=== PATIENT | female | born 2000 | race Caucasian/White ===

== ENCOUNTER 2021-05-12 12:09 | Emergency (ER) | payer OTHER, SELFPAY ==
[2021-05-12 12:26] VITALS: BP 137/88; PULSE 95; RESP 18; TEMP 36.6; O2SAT 100; BMI 26.5
--- NOTE | 2021-05-12 13:35 | ED_ITS ---
HPI - General Adult General Chief complaint: General Medical Stated complaint: ? Time Seen by Provider: 05/12/21 13:21 Source: patient Mode of arrival: ambulatory Limitations: no limitations History of Present Illness HPI narrative: 20-year-old female presents for wanting help with obtaining an . Patient's last menstrual period was April 08. Patient had negative test at home, but 1 week ago was at [facility], for vomiting and dizziness, and had reports she had a positive blood test there. She is 3, para 1, one other . She has a 4-year-old son, and cannot take care of another child at this time. Patient seeking help with termination No abdominal pain, no vomiting, no vaginal bleeding, no pelvic cramping, no vaginal discharge, no STI concerned Related Data Allergies Allergy/AdvReac Type Severity Reaction Status Date / Time Latex, Natural Rubber Allergy Anaphylaxis Verified 05/12/21 12:26 Review of Systems Constitutional: Constitutional: Denies body ache(s), Denies chills, Denies fatigue, Denies fever(s), Denies headache(s), Denies malaise and Denies weakness Eyes: Eyes: Denies diplopia ENT: Denies vertigo, Denies dizziness, Denies otalgia, Denies headache(s), Denies mouth pain, Denies post nasal drip, Denies sinus pain, Denies sinus pressure, Denies sore throat and Denies throat swelling Cardiovascular: Cardiovascular: Denies chest pain, Denies syncope, Denies leg edema, Denies lightheadedness, Denies Loss of Consciousness, Denies palpitations and Denies dyspnea Respiratory: Respiratory: Denies chest congestion, Denies cough and Denies dyspnea Gastrointestinal: Gastrointestinal: Denies abdominal pain, Denies hematochezia, Denies constipation, Denies diarrhea and Denies vomiting Genitourinary: Genitourinary: Denies abnormal vaginal bleeding, Reports amenorrhea, Denies dysuria, Denies pelvic pain, Denies flank pain, Denies urinary urgency, Denies vaginal discharge, Denies vaginal odor and Denies vaginal pruritus Musculoskeletal: Musculoskeletal: Reports no additional musculoskeletal complaints Neurologic: Denies confusion, Denies vertigo, Denies dizziness, Denies syncope, Denies headache(s) and Denies weakness Psychiatric: Psychiatric: Denies anxiety, Denies confusion and Denies depression Endocrine: Endocrine: Denies fatigue and Denies palpitations Allergic/Immunologic: Allergic/Immunologic: Denies throat swelling PMFSH Past Medical History Medical History (Updated 05/12/21 @ 13:43 by MUKUL Vega) Social History Social History Advance Directives: No Advance Directives Information Provided: No Patient : Yes Physical Exam ED Vital Signs: Vital Signs - 24 hr 05/12/21 12:26 Temperature 97.9 F Pulse Rate 95 Respiratory Rate 18 Blood Pressure 137/88 Pulse Oximetry 100 BMI result Body Mass Index 26.5 Const General: healthy appearing, comfortable, no acute distress, alert and awake; No confusion Nutritional Appearance: well nourished Orientation/consciousness: patient oriented x3 and No confusion Limitations: no limitations HENMT Head: Yes normal to inspection, Yes No palpable skull fracture present and Yes atraumatic Ears: hearing grossly normal bilaterally, external ears normal and TM's normal bilaterally General nose exam: Normal external nose present Face and sinus: Yes normal facial exam Mouth: Normal oral and palatal mucosa present Throat: Yes posterior oropharynx normal Eyes Pupils: Equal, round and reactive pupils present EOM: EOMs intact bilaterally Neck Neck: Yes normal visual inspection and Yes full ROM Resp Effort & Inspection: normal respiratory effort and able to speak in complete sentences Auscultation: clear to auscultation bilaterally, no crackles, no rales, no rhonchi and no wheezes GI Inspection: Yes normal to inspection Palpation (GI): Soft to palpation, not firm, nontender, no guarding and not rigid Percussion: Yes normal to percussion Auscultation: normal bowel sounds General: Yes no CVA tenderness Back/Spine/Pelvis Back: no CVA tenderness Skin General skin exam: no rashes or lesions noted Neuro General: patient oriented x3 and No confusion Cranial nerves: Yes Equal, round and reactive pupils present Extrem General: Yes normal to inspection and Yes full ROM Psych Appearance: grossly normal Mental Status: mental status grossly normal Speech and movement: Normal speech and movement present Affect: Sad affect present and Anxious affect present Attitude: cooperative Course Course Course Narrative: 20-year-old female seeking axis to . Patient had confirmed by serum blood test last week at [facility]. [facility] [place] Counseled patient to return if she had abdominal pain, pelvic cramping, vaginal bleeding, or any other new or concerning symptoms Discharge Plan Discharge Clinical Impression: Patient Disposition: Home, Self-Care Additional Instructions: [facility] call [facility] in [place], at [phone]. They are at [address] in [place]. You can also book an appointment online with them. They provide termination. If you have any belly pain, any vaginal bleeding or cramping, nausea or vomiting, please return to the ER Interventions: ED Discharge Assessment Last Done: 05/12/21 13:54 Discharge Date/Time: 05/12/21 13:54
== END 2021-05-12 13:54 | disposition home or self-care (01) ==
PROVIDERS: Emergency Provider Emergency Medicine; PCP Family Medicine Geriatric Medicine
DX: Z72.89 Other problems related to lifestyle (principal); Z64.0 Problems related to unwanted pregnancy
CPT/HCPCS: 99282; 99283